=== PATIENT | male | born 1965 | race Caucasian/White ===

== ENCOUNTER 2022-06-13 09:21 | Outpatient (REF) | payer OTHER, SELFPAY ==
[2022-06-13 10:58] LABS: Alanine Aminotransferase 19 U/L (0-40); Alkaline Phosphatase 129 U/L (39-117); Anion Gap 11 (12-20); Aspartate Amino Transferase 23 U/L (5-37); Bilirubin Total 0.2 mg/dL (0.0-1.0); Blood Urea Nitrogen 22 mg/dL (9-16); Calcium 9.6 mg/dL (8.4-10.2); Carbon Dioxide 32 mmol/L (22-29); Chloride 107 mmol/L (96-108); Estimated Glomerular Filt Rate > 60; Glucose Fasting 72 mg/dL (60-99); Potassium 5.2 mmol/L (3.3-5.1); Prostate Specific Antigen 0.44 ng/mL (<0.05-4.0); Sodium 145 mmol/L (135-145); Total Protein 6.7 g/dL (6.5-8.0)
== END 2022-06-13 09:22 | disposition home or self-care (01) ==
LOC: HO.LAB 09:21
PROVIDERS: Visit Provider Nurse Practitioner Family
DX: Z12.5 Encounter for screening for malignant neoplasm of prostate (principal); Z13.1 Encounter for screening for diabetes mellitus
CPT/HCPCS: 36415; 80053; 84153

== ENCOUNTER 2023-04-04 09:23 | Outpatient (AMB) | payer OTHER, SELFPAY ==
[2023-04-04 09:26] VITALS: BP 118/80; PULSE 71; O2SAT 99; BMI 22.7
--- NOTE | 2023-04-04 09:26 | MHC.PC.OV ---
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 Language: Moroccan Allergies No Known Allergies Allergy (Verified 04/04/23 10:34) Medication List - Last Reconciled 04/04/23 by ALEXSANDRA Alexis fluoxetine 40 mg PO DAILY gabapentin 300 mg PO BEDTIME 90 days hydroxyzine HCl 10 mg PO BEDTIME omeprazole 20 mg PO DAILY 2 months quetiapine 25 mg PO BEDTIME Tobacco use date assessed: 04/04/23 Dental Screening Dental Screen Date: 04/04/23 Did you have a dental visit in the last 12 months?: No Did you have a dental problem in the last 6 months where you did not have access to dental care?: No HPI back pain and stomach pain HPI Details Patient is a 57-year-old male presents today with multiple issues. Patient reports lumbar spine pain that radiate to his left lower extremity since 1992, reports history of job accident, reports Tylenol is not pain. No numbness or tingling. Pain is worse with prolonged standing pain is constant, currently 6/10 scale. He also reports left shoulder pain, unable to raise his left arm due to pain and shoulder for the past 6 months now. Denies injury. Also reports left upper quadrant pain which is intermittent usually worse in the morning for past 5 days, denies drinking alcohol no nausea or vomiting, no changes bowel/bladder. In addition he reports erectile dysfunction, reports being on Viagra in the past and would like to try this again. No shortness of breath or chest pain. Denies cardiac conditions. Patient is a Moroccan-speaking and Linda was helping with interpretation. [facility] Medical History Screening for prostate cancer Screening for diabetes mellitus Anxiety and depression Surgical History History of colonoscopy History of testicular surgery Family History Father Prostate cancer Mother Diabetes CKD (chronic kidney disease) Hypertension Other Mental problem Social History Alcohol intake: never Patient Tobacco Use Status: Never used Tobacco service: No Cognitive needs: No Hearing needs: No Vision needs: No Questionnaire AUDIT C Alcohol Use Questionnaire (AUDIT-C) 1. How often do you have a drink containing alcohol?: Never 3. How often do you have six or more drinks on one occasion?: Never Total Score: 0 Score Reviewed/Action Taken: No NICHOLAS-7 AMB Questionnaire NICHOLAS-7 Date NICHOLAS - 7 assessed: 04/02/23 Source: Developed by Drs. Nikhil Murphy, Ila Glover, Pablo Argueta and colleagues, with an educational loretta from [employer]. Review of Systems Const Denies body aches, Denies chills, Denies fever(s) and Denies headache(s) ENT Denies dizziness, Denies otalgia, Denies headache(s), Denies nasal discharge, Denies sinus pain and Denies sore throat Card Denies chest pain, Denies edema, Denies lightheadedness and Denies dyspnea Resp Denies cough, Denies dyspnea and Denies wheezing GI Reports abdominal pain, Denies constipation, Denies diarrhea, Denies nausea and Denies vomiting Reports as per HPI and Denies dysuria Musc Reports back pain, Denies myalgias, Reports arthralgias, Denies numbness and Denies tingling Skin/Breast Denies rash Neuro Denies dizziness, Denies headache(s), Denies numbness and Denies tingling Aller/Immun Denies wheezing Physical exam (Primary Care) Vital Signs: Last Vital Signs Pulse 71 04/04/23 09:26 BP 118/80 04/04/23 09:26 Pulse Ox 99 04/04/23 09:26 Oxygen Delivery Method Room Air 04/04/23 09:26 BMI result Body Mass Index 22.7 Tobacco/Smoking Status: Tobacco use Status Tobacco use date assessed 04/04/23 04/04/23 09:27 Patient Tobacco Use Status Never used Tobacco 04/04/23 09:27 Const General: cooperative and no acute distress Orientation/consciousness: patient oriented x3 HENMT Head: Yes normocephalic and Yes atraumatic Face and sinus: Yes sinuses nontender Mouth: oropharynx normal and moist mucous membranes Throat: Yes posterior oropharynx normal Eyes General: appearance normal, both eyes and all related structures Neck Neck: Yes normal visual inspection, Yes full ROM and Yes no lymphadenopathy Resp Effort & Inspection: normal respiratory effort and able to speak in complete sentences Auscultation: clear to auscultation bilaterally, no crackles, no rales, no rhonchi and no wheezes Cardio Rate: regular rate Rhythm: regular rhythm Heart sounds: S1 normal heart sound present and S2 normal heart sound present GI Palpation (GI): Soft to palpation, not firm, Tenderness to palpation present (GI) in the LUQ; with no rebound tenderness, no guarding, not rigid and no hepatosplenomegaly Auscultation: normal bowel sounds General: No CVA tenderness Back/Spine/Pelvis Back: No CVA tenderness Thoracic/Lumbar Spine: thoraco-lumbar ROM normal, paraspinal muscle tenderness (Left lumbar aspect), No thoracic spinal tenderness, lumbar spinal tenderness and straight leg raise positive (Left) Skin General skin exam: no rashes or lesions noted Neuro General: patient oriented x3 Gait exam (Neuro): Normal gait present Motor exam (neuro): 5/5 motor strength present throughout (Bilateral upper extremity) Extrem General: Yes full ROM and No edema Left upper extremity: shoulder/upper arm Details: inspection abnormal and abnormal ROM; no tenderness, no swelling, no ecchymosis, no crepitus and no unsual warmth Assessment and Plan Assessment & Plan (1) Left shoulder pain: Code(s): M25.512 - Pain in left shoulder Plan: Physical therapy referral Patient can try [id number] Tylenol 650 mg every 6 hours as needed Will provide with muscle relaxer and prednisone Follow-up if no improvement after physical therapy (2) Erectile dysfunction: Code(s): N52.9 - Male erectile dysfunction, unspecified Plan: Check testosterone level Start Viagra daily p.r.n.-educated about adverse reactions and when to notify provider (3) LUQ pain: Code(s): R10.12 - Left upper quadrant pain Plan: Will obtain blood work and ultrasound (4) Lumbar spine pain: Code(s): M54.5 - Low back pain Plan: Physical therapy referral Pain management referral Will obtain x-ray Start prednisone 20 mg daily for 5 days Start cyclobenzaprine 5 mg t.i.d. p.r.n.-educated about drowsiness Encouraged heat/cold packs p.r.n. Patient reports that ibuprofen upsets his stomach He can try [id number] Tylenol p.r.n. Signs and symptoms reviewed when to notify provider go to the emergency department Gabapentin refilled (5) GERD (gastroesophageal reflux disease): Code(s): K21.9 - Gastro-esophageal reflux disease without esophagitis Plan: Continue omeprazole Avoid GERD trigger foods Do not lay down 2-3 hours after evening meal Plan Keep appointment with PCP as scheduled or follow-up sooner as needed Orders: Orders Complete Blood Count Auto Diff Today R10.12 - Left upper quadrant pain Comprehensive Met. Panel Today R10.12 - Left upper quadrant pain Lipase Today R10.12 - Left upper quadrant pain Testosterone, Total Today N52.9 - Male erectile dysfunction, unspecified US abdomen complete Today R10.12 - Left upper quadrant pain XR lumbar spine 4V min Today M54.5 - Low back pain PT Evaluation and Treatment Today M25.512 - Pain in left shoulder, M54.5 - Low back pain Referrals Pain Management Referral M54.5 - Low back pain Medications: New cyclobenzaprine 5 mg PO TID PRN 15 tabs 0RF muscle spasm M25.512 - Pain in left shoulder, M54.5 - Low back pain prednisone 20 mg PO DAILY 5 days 5 tabs 0RF M25.512 - Pain in left shoulder, M54.5 - Low back pain sildenafil (Viagra) administer 30 minutes to 4 hours before activity 50 mg PO DAILY PRN 14 tabs 0RF sexual activity N52.9 - Male erectile dysfunction, unspecified Refilled gabapentin 300 mg PO BEDTIME 90 days 90 caps 0RF M54.5 - Low back pain omeprazole 20 mg PO DAILY 2 months 60 caps 0RF Coding Level of Care Code Est Pt Level 4 (17242) Diagnoses Left shoulder pain M25.512 Erectile dysfunction N52.9 LUQ pain R10.12 Lumbar spine pain M54.5 GERD (gastroesophageal reflux disease) K21.9
== END 2023-04-04 10:54 | disposition home or self-care (01) ==
PROVIDERS: PCP Nurse Practitioner Family; Visit Provider Nurse Practitioner Family
DX: M25.512 Pain in left shoulder (principal); N52.9 Male erectile dysfunction, unspecified; R10.12 Left upper quadrant pain; M54.50 Low back pain, unspecified; K21.9 Gastro-esophageal reflux disease without esophagitis
CPT/HCPCS: 99214

== ENCOUNTER 2023-05-03 13:56 | Outpatient (AMB) | payer OTHER, SELFPAY ==
[2023-05-03 14:03] VITALS: BP 132/87; PULSE 78; O2SAT 99; BMI 22.7
--- NOTE | 2023-05-03 14:03 | MHC.PC.OV ---
Vital Signs 05/03/23 14:03 Height 5 ft 9 in Weight 154 lb BMI 22.7 BP 132/87 Blood Pressure Location Lt brachial Position Sitting Pulse 78 Pulse Source Pulse Oximeter Temp Source Skin Pulse Oximetry (%) 99 Intake Visit Reasons: discuss med Intake Note: pt would like to discuss sildenafil increase Allergies No Known Allergies Allergy (Verified 05/03/23 14:09) Medication List - Last Reconciled 05/03/23 by ALEXSANDRA Alexis cyclobenzaprine 5 mg PO TID PRN fluoxetine 40 mg PO DAILY gabapentin 300 mg PO BEDTIME 90 days hydroxyzine HCl 10 mg PO BEDTIME omeprazole 20 mg PO DAILY 2 months prednisone 20 mg PO DAILY 5 days quetiapine 25 mg PO BEDTIME sildenafil (Viagra) 50 mg PO DAILY PRN Tobacco use date assessed: 05/03/23 HPI discuss med HPI Details Patient is a 57-year-old male who presents today for the same day visit requesting Viagra to be increased to 100 mg daily as needed. Patient was on Viagra 50 mg daily as needed, reports that 50 mg not working and he has been taking 2 tablets with positive effect. He denied cardiac conditions. Denies any side effects from Viagra. Patient was encouraged to complete his blood work that includes testosterone level. [facility] Medical History Screening for prostate cancer Screening for diabetes mellitus Anxiety and depression Surgical History History of colonoscopy History of testicular surgery Family History Father Prostate cancer Mother Diabetes CKD (chronic kidney disease) Hypertension Other Mental problem Social History Alcohol intake: never Patient Tobacco Use Status: Never used Tobacco service: No Cognitive needs: No Hearing needs: No Vision needs: No Questionnaire AUDIT C Alcohol Use Questionnaire (AUDIT-C) 1. How often do you have a drink containing alcohol?: Never 3. How often do you have six or more drinks on one occasion?: Never Total Score: 0 Score Reviewed/Action Taken: No NICHOLAS-7 AMB Questionnaire NICHOLAS-7 Date NICHOLAS - 7 assessed: 04/02/23 Source: Developed by Drs. Nikhil Murphy, Ila Glover, Pablo Argueta and colleagues, with an educational loretta from [employer]. Review of Systems Const Denies body aches, Denies chills, Denies fever(s) and Denies headache(s) ENT Denies dizziness, Denies otalgia, Denies headache(s), Denies nasal discharge, Denies sinus pain and Denies sore throat Card Denies chest pain, Denies edema, Denies lightheadedness and Denies dyspnea Resp Denies cough, Denies dyspnea and Denies wheezing GI Denies abdominal pain Reports as per HPI Musc Denies myalgias Neuro Denies dizziness and Denies headache(s) Aller/Immun Denies wheezing Physical exam (Primary Care) Vital Signs: Last Vital Signs Pulse 78 05/03/23 14:03 BP 132/87 05/03/23 14:03 Pulse Ox 99 05/03/23 14:03 BMI result Body Mass Index 22.7 Tobacco/Smoking Status: Tobacco use Status Tobacco use date assessed 05/03/23 05/03/23 14:06 Patient Tobacco Use Status Never used Tobacco 05/03/23 14:06 Const General: cooperative and no acute distress Orientation/consciousness: patient oriented x3 HENMT Head: Yes normocephalic and Yes atraumatic Eyes General: appearance normal, both eyes and all related structures Neck Neck: Yes normal visual inspection and Yes full ROM Resp Effort & Inspection: normal respiratory effort and able to speak in complete sentences Auscultation: clear to auscultation bilaterally, no crackles, no rales, no rhonchi and no wheezes Cardio Rate: regular rate Rhythm: regular rhythm Heart sounds: S1 normal heart sound present and S2 normal heart sound present GI Auscultation: normal bowel sounds Skin General skin exam: no rashes or lesions noted Neuro General: patient oriented x3 Gait exam (Neuro): Normal gait present Extrem General: Yes full ROM Assessment and Plan Assessment & Plan (1) Erectile dysfunction: Code(s): N52.9 - Male erectile dysfunction, unspecified Plan: Patient was encouraged to complete his blood work Increase Viagra to 100 mg daily p.r.n. Patient agreed with the plan Medications: New sildenafil (Viagra) administer 30 minutes to 4 hours before activity 100 mg PO DAILY PRN 30 tabs 0RF sexual activity N52.9 - Male erectile dysfunction, unspecified Discontinued sildenafil (Viagra) administer 30 minutes to 4 hours before activity Discontinued Reason: Doctor's Order 50 mg PO DAILY PRN 14 tabs 0RF sexual activity N52.9 - Male erectile dysfunction, unspecified Coding Level of Care Code Est Pt Level 3 (04746) Diagnoses Erectile dysfunction N52.9
== END 2023-05-03 14:43 | disposition home or self-care (01) ==
PROVIDERS: PCP Nurse Practitioner Family; Visit Provider Nurse Practitioner Family
DX: N52.9 Male erectile dysfunction, unspecified (principal)
CPT/HCPCS: 99213

== ENCOUNTER 2024-03-11 09:15 | Outpatient (AMB) | payer OTHER, SELFPAY ==
--- NOTE | 2024-03-11 09:28 | MHC.PC.OV ---
Intake Visit Reasons: follow up Allergies No Known Allergies Allergy (Verified 05/03/23 14:09) Tobacco use date assessed: 05/03/23 Dental Screening Dental Screen Date: 04/04/23 [facility] Medical History Screening for prostate cancer Screening for diabetes mellitus Anxiety and depression Surgical History History of colonoscopy History of testicular surgery Family History Father Prostate cancer Mother Diabetes CKD (chronic kidney disease) Hypertension Other Mental problem Social History Alcohol intake: never Patient Tobacco Use Status: Never used Tobacco service: No Cognitive needs: No Hearing needs: No Vision needs: No Questionnaire NICHOLAS-7 AMB Questionnaire NICHOLAS-7 Date NICHOLAS - 7 assessed: 04/02/23 Source: Developed by Drs. Nikhil Murphy, Ila Glover, Pablo Argueta and colleagues, with an educational loretta from [employer]. Physical exam (Primary Care) Tobacco/Smoking Status: Tobacco use Status Tobacco use date assessed 05/03/23 05/03/23 14:06 Patient Tobacco Use Status Never used Tobacco 05/03/23 14:06 Coding
[2024-03-11 09:29] VITALS: BP 122/82; PULSE 74; O2SAT 97; BMI 24.2
--- NOTE | 2024-03-11 09:33 | MHC.PC.OV ---
Vital Signs 03/11/24 09:29 Height 5 ft 9 in Weight 164 lb BMI 24.2 BP 122/82 Blood Pressure Location Lt brachial Position Sitting Pulse 74 Pulse Source Pulse Oximeter Pulse Oximetry (%) 97 Oxygen Delivery Method Room Air Intake Visit Reasons: follow up Intake Note: The patient is here to establish care following a transfer from [facility], for management of anxiety and depression. The patient reports ongoing issues with gas and stomach aches over the past 3-4 weeks, along with a worsening of symptoms. Manager Er Required: No Accompanied by: Self / Same As Patient Allergies No Known Allergies Allergy (Verified 03/11/24 09:46) Medication List - Last Reconciled 03/11/24 by Art Penn PA-C cyclobenzaprine 5 mg PO TID PRN fluoxetine 40 mg PO DAILY gabapentin 300 mg PO BEDTIME 90 days hydroxyzine HCl 10 mg PO BEDTIME quetiapine 25 mg PO BEDTIME sildenafil (Viagra) 100 mg PO DAILY PRN Tobacco use date assessed: 03/11/24 Dental Screening Dental Screen Date: 03/11/24 Did you have a dental visit in the last 12 months?: Yes Did you have a dental problem in the last 6 months where you did not have access to dental care?: No Was dental information given to patient?: Patient has dentist HPI follow up HPI Details Patient is a 58-year-old male here today for transfer care visit. This is the 1st time I am meeting this 50-year-old male with a past medical history significant for major depressive disorder, generalized anxiety disorder, GERD, erectile dysfunction and chronic low back pain Concern--> reports having abdominal distention and pain over the last month. He reports his abdominal distention is worse in the mornings. He also reports having left inguinal pain ever since having surgery years ago. He is asking for oxycodone for pain. He reports he had? Hernia or testing removed at that time. Depression: Is on multiple mental health medication and does need PCP to manage his mental health medication until he is able to establish with a psychiatrist in near future. [facility] Medical History Screening for prostate cancer Screening for diabetes mellitus Anxiety and depression Surgical History History of colonoscopy History of testicular surgery Family History Father Prostate cancer Mother Diabetes CKD (chronic kidney disease) Hypertension Other Mental problem Social History Housing: Apartment Alcohol intake: never Patient Tobacco Use Status: Never used Tobacco e-Cigarette/Vaping Use: Never Used service: No Cognitive needs: No Hearing needs: No Vision needs: No Questionnaire PHQ-9 Over the last 2 weeks, how often have you been bothered by any of the following problems? 1. Little interest or pleasure in doing things: not at all 2. Feeling down, depressed, or hopeless: several days 3. Trouble falling or staying asleep, or sleeping too much: not at all 4. Feeling tired or having little energy: several days 5. Poor appetite or overeating: not at all 6. Feeling bad about yourself - or that you are a failure or have let yourself or your family down: not at all 7. Trouble concentrating on things, such as reading the newspaper or watching television: several days 8. Moving or speaking so slowly that other people could have noticed. Or the opposite - being so fidgety or restless that you have been moving around a lot more than usual: not at all 9. Thoughts that you would be better off or of hurting yourself in some way: not at all Total score: 3 50220 - PHQ-9 Billing: Yes Source: Developed by Drs. Nikhil Murphy, Ila Glover, Pablo Argueta and colleagues, with an educational loretta from [employer]. Thrive Questionnaire Date Thrive assessed: 03/11/24 I am a: Patient What is your living situation today?: I have a steady place to live Within the past 12 months, did the food you bought not last and you didn't have the money to get more?: Never true Within the past 12 months, did you worry whether your food would run out before you got money to buy more?: Never true Do you have trouble paying for medicines?: No Do you have trouble getting transportation to medical appointments?: No Do you have trouble paying your heating and electricity bill?: No Do you have trouble taking care of your child, family member or friend?: No Do you have trouble with day-to-day activities such as bathing, preparing meals, shopping, managing finances, etc.?: No Are you currently unemployed and looking for a job?: No Are you interested in more education?: No Please select the resources that you would like help with: None Currently or been in a relationship where the following occur: No concerns reported THRIVE Score: 0 AUDIT C Alcohol Use Questionnaire (AUDIT-C) 1. How often do you have a drink containing alcohol?: Never 3. How often do you have six or more drinks on one occasion?: Never Total Score: 0 NICHOLAS-7 AMB Questionnaire NICHOLAS-7 Date NICHOLAS - 7 assessed: 03/11/24 Feeling nervous, anxious, or on edge: 0 = Not at all Not being able to stop or control worryin = Not at all Worrying too much about different things: 0 = Not at all Trouble relaxin = Not at all Being so restless that it is hard to sit still: 1 = Several days Becoming easily annoyed or irritable: 0 = Not at all Feeling afraid as if something awful might happen: 0 = Not at all Total NICHOLAS-7 score (0-4 normal; 5-9 mild; 10-14 moderate; 15-21 severe): 1 Source: Developed by Drs. Nikhil Murphy, Ila Glover, Pablo Argueta and colleagues, with an educational loretta from [employer]. NICHOLAS-7 Assessment Billing NICHOLAS-7 Assessment Tool: NICHOLAS-7 Assessment 75084 Review of Systems Const Denies headache(s) Eyes Denies loss of vision ENT Denies vertigo, Denies dizziness, Denies headache(s) and Denies sore throat Card Denies chest pain, Denies leg edema and Denies lightheadedness Resp Denies cough, Denies hemoptysis and Denies wheezing GI Denies abdominal pain, Denies melena, Denies constipation, Denies diarrhea and Denies vomiting Denies dysuria, Denies urinary frequency and Denies urinary urgency Musc Denies arthralgias, Denies joint swelling, Denies numbness and Denies tingling Neuro Denies Abnormal speech present, Denies behavioral changes, Denies vertigo, Denies dizziness, Denies headache(s), Denies loss of vision, Denies memory loss, Denies numbness and Denies tingling Psych Denies anxiety, Denies behavioral changes, Denies depression, Denies memory loss and Denies panic attacks Brandyn/Lymph Denies easy bleeding and Denies easy bruising Aller/Immun Denies wheezing Physical exam (Primary Care) Vital Signs: Last Vital Signs Pulse 74 03/11/24 09:29 BP 122/82 03/11/24 09:29 Pulse Ox 97 03/11/24 09:29 Oxygen Delivery Method Room Air 03/11/24 09:29 BMI result Body Mass Index 24.2 Tobacco/Smoking Status: Tobacco use Status Tobacco use date assessed 03/11/24 03/11/24 09:44 Patient Tobacco Use Status Never used Tobacco 03/11/24 09:44 e-Cigarette/Vaping Use Never Used 03/11/24 09:44 PHQ-9: PHQ-9 Score PHQ-9: Total score 3 03/11/24 09:49 Thrive Assessment: Date of Thrive Assessment Date Thrive assessed 03/11/24 03/11/24 09:44 Currently or been in a relationship where the following occur: No concerns reported Const General: healthy appearing, no acute distress, alert and awake Nutritional Appearance: well nourished Orientation/consciousness: oriented to person, oriented to place and oriented to time HENMT Ears: TM's normal bilaterally General nose exam: Normal nasal mucous membranes and turbinates present Eyes Conjunctivae: conjunctivae normal Sclerae: sclerae normal Pupils: Equal, round and reactive pupils present Neck Neck: Yes no lymphadenopathy and Yes no JVD Thyroid: Thyroid normal Carotids: no bruits Resp Effort & Inspection: normal respiratory effort and not tachypneic Auscultation: no crackles, no rales, no rhonchi and no wheezes Cardio Rate: regular rate Rhythm: regular rhythm Heart sounds: no murmurs and normal S1 and S2 GI Palpation (GI): Soft to palpation, nontender, no hepatomegaly and no splenomegaly Auscultation: normal bowel sounds Skin General skin exam: no rashes or lesions noted and dry skin Neuro General: oriented to person, oriented to place and oriented to time Cranial nerves: Yes Equal, round and reactive pupils present Speech: No Abnormal speech present Gait exam (Neuro): Normal gait present Motor exam (neuro): no tremor noted Extrem Right upper extremity: full ROM Left upper extremity: full ROM Right lower extremity: full ROM; no edema Left lower extremity: full ROM; no edema Psych Mental Status: mental status grossly normal Speech and movement: Normal speech and movement present Affect: normal affect Attitude: cooperative Thought process: Normal thought process present Assessment and Plan Assessment & Plan (1) Anxiety and depression: Code(s): F41.9 - Anxiety disorder, unspecified; F32.9 - Major depressive disorder, single episode, unspecified Plan: Patient on several mental health medications he needs managed by his PCP temporarily. He reports will be seeing his psychiatrist in the near future (2) Left inguinal pain: Code(s): R10.32 - Left lower quadrant pain Plan: Patient reports chronic left inguinal pain ever since his surgery years ago. He is asking for oxycodone though do not feel this is appropriate for him. Will continue him with gabapentin and cyclobenzaprine for his pain. (3) Abdominal bloating: Code(s): R14.0 - Abdominal distension (gaseous) Plan: He reports having abdominal bloating worse in the mornings on a frequent occasion. Will supply patient with simethicone to use after eating to reduce abdominal gas. Will also send for ultrasound of abdomen as she reports some left upper quadrant abdominal pain quite often. (4) Erectile dysfunction: Code(s): N52.9 - Male erectile dysfunction, unspecified Qualifiers: Erectile dysfunction type: post-procedural Post-procedural erectile dysfunction type: unspecified Qualified Code(s): N52.39 - Other and unspecified postprocedural erectile dysfunction Orders: Orders Prostate Specific Antigen Scr Today Z12.5 - Encounter for screening for malignant neoplasm of prostate, Z13.1 - Encounter for screening for diabetes mellitus Complete Blood Count no Diff Today K21.9 - Gastro-esophageal reflux disease without esophagitis Comprehensive [place]. Panel Fast Today Z13.1 - Encounter for screening for diabetes mellitus US abdomen complete Today R10.12 - Left upper quadrant pain, R14.0 - Abdominal distension (gaseous) Medications: New simethicone (Gas Relief (simethicone)) after meals 180 mg PO BID 60 caps 1RF 30 days R14.0 - Abdominal distension (gaseous) Changed From quetiapine 25 mg PO BEDTIME 90 tabs 0RF F32.9 - Major depressive disorder, single episode, unspecified, F41.9 - Anxiety disorder, unspecified To quetiapine 25 mg PO BEDTIME 30 tabs 0RF 30 days F32.9 - Major depressive disorder, single episode, unspecified, F41.9 - Anxiety disorder, unspecified From sildenafil (Viagra) administer 30 minutes to 4 hours before activity 100 mg PO DAILY PRN 10 tabs 0RF sexual activity N52.9 - Male erectile dysfunction, unspecified To sildenafil (Viagra) administer 30 minutes to 4 hours before activity 100 mg PO DAILY PRN 30 tabs 1RF sexual activity 30 days N52.9 - Male erectile dysfunction, unspecified From fluoxetine 40 mg PO DAILY 90 caps 1RF F32.9 - Major depressive disorder, single episode, unspecified, F41.9 - Anxiety disorder, unspecified To fluoxetine 40 mg PO DAILY 30 caps 1RF 30 days F32.9 - Major depressive disorder, single episode, unspecified, F41.9 - Anxiety disorder, unspecified Refilled gabapentin 300 mg PO BEDTIME 90 caps 1RF 90 days M54.5 - Low back pain cyclobenzaprine 5 mg PO TID PRN 15 tabs 0RF muscle spasm M25.512 - Pain in left shoulder, M54.5 - Low back pain Coding Level of Care Code Est Pt Level 4 (61810) Diagnoses Anxiety and depression F41.9; F32.9 Left inguinal pain R10.32 Abdominal bloating R14.0 Post-procedural erectile dysfunction, unspecified type N52.39 Erectile dysfunction type: post-procedural Post-procedural erectile dysfunction type: unspecified Additional Codes NICHOLAS-7 Assessment Billing - NICHOLAS-7 Assessment Tool: INCHOLAS-7 Assessment [id number] ([id number])
== END 2024-03-11 10:02 | disposition home or self-care (01) ==
PROVIDERS: PCP Physician Assistant; Visit Provider Physician Assistant
DX: F41.9 Anxiety disorder, unspecified (principal); F32.9 Major depressive disorder, single episode, unspecified; R10.32 Left lower quadrant pain; R14.0 Abdominal distension (gaseous); N52.39 Other and unspecified postprocedural erectile dysfunction

== ENCOUNTER → 2024-03-11 09:15 | Outpatient (BNVA) | payer OTHER, SELFPAY | PROVIDERS: PCP Physician Assistant; Visit Provider Physician Assistant | DX: F41.9 Anxiety disorder, unspecified (principal); F32.9 Major depressive disorder, single episode, unspecified; R10.32 Left lower quadrant pain; R14.0 Abdominal distension (gaseous); N52.39 Other and unspecified postprocedural erectile dysfunction | CPT/HCPCS: 96127; 99212 ==

== ENCOUNTER 2024-03-23 10:04 | Outpatient (REF) | payer OTHER, SELFPAY ==
--- NOTE | ~2024-03-23 | US_ITS ---
EXAMINATION: US ABDOMEN COMPLETE CLINICAL INFORMATION: Left upper quadrant pain. Abdominal bloating. COMPARISON: None available. TECHNIQUE: Real-time imaging of the abdominal viscera. FINDINGS: PANCREAS: The visualized pancreas appears unremarkable but the pancreatic tail is obscured by bowel gas. ABDOMINAL AORTA: The proximal, mid, and distal segments are normal in caliber. INFERIOR VENA CAVA: Visualized portions are normal. LIVER: Normal. The liver is normal in size. The liver contour is normal. Parenchymal echogenicity is normal. No focal hepatic lesion. There is no intrahepatic biliary duct dilatation seen. GALLBLADDER: Normal. The gallbladder is physiologically distended without evidence of stones, sludge, polyps, wall thickening or pericholecystic fluid. COMMON BILE DUCT: Normal in caliber measuring 0.6 cm in diameter. RIGHT KIDNEY: Normal. No hydronephrosis. No renal calculi or focal parenchymal lesions. The kidney measures 9.8 cm in maximum dimension. LEFT KIDNEY: Normal. No hydronephrosis. No renal calculi or focal parenchymal lesions. The kidney measures 11.0 cm in maximum dimension. SPLEEN: Normal. The spleen measures 8.0 cm in maximum dimension. FREE FLUID: None. US/US abdomen complete IMPRESSION: Negative exam. A cause for the patient's left upper quadrant pain and bloating has not been found. Electronically signed by: Pancho Durham MD 05/16/2024 10:43 AM EST
== END 2024-03-23 10:05 | disposition home or self-care (01) ==
LOC: HO.US 10:04
PROVIDERS: PCP Physician Assistant; Visit Provider Physician Assistant
DX: R10.12 Left upper quadrant pain (principal); R14.0 Abdominal distension (gaseous)
CPT/HCPCS: 76700